=== PATIENT | male | born 1940 | race Caucasian/White ===

== ENCOUNTER → 2023-03-01 | Outpatient (CLI) | payer MEDICARE, OTHER ==
[2023-03-01 15:00] LABS: BASO % 0.6 % (0.0-1.0); EOS % 0.8 % (0.0-3.0); HEMATOCRIT 44.7 % (42.0-52.0); LYMPH # 1.1 10^3/uL (1.5-5.0); LYMPH % 21.4 % (24.0-44.0); MEAN CORPUSCULAR HEMOGLOBIN 31.1 pg (27.0-33.0); MEAN CORPUSCULAR HGB CONC 33.6 g/dl (32.0-36.5); MEAN CORPUSCULAR VOLUME 92.7 fl (80.0-96.0); MONO # 0.5 10^3/uL (0.0-0.8); MONO % 10.9 % (2.0-8.0); NEUTROPHILS # 3.3 10^3/uL (1.5-8.5); NEUTROPHILS % 66.1 % (36.0-66.0); PLATELET COUNT, AUTOMATED 164 10^3/uL (150-450); RED BLOOD COUNT 4.82 10^6/uL (4.30-6.10)
[2023-03-01 15:19] LABS: ALBUMIN 3.9 G/DL (3.2-5.2); ALKALINE PHOSPHATASE 59 U/L (46-116); ALT/SGPT 16 U/L (7.0-40); AST/SGOT 23 U/L (<34); BILIRUBIN,TOTAL 0.7 MG/DL (0.3-1.2); BLOOD UREA NITROGEN 19 MG/DL (9-23); CALCIUM LEVEL 8.7 MG/DL (8.3-10.6); CARBON DIOXIDE LEVEL 30 MMOL/L (20-31); CHLORIDE LEVEL 103 MMOL/L (98-107); CREATININE FOR GFR 0.95 MG/DL (0.70-1.30); GLOMERULAR FILTRATION RATE > 60.0 (>35); GLUCOSE, FASTING 72 MG/DL (74-106); SODIUM LEVEL 141 MMOL/L (136-145)
[2023-03-01 15:20] LABS: FOLATE > 24.0 NG/ML (>5.4); THYROXINE (T4) 9.1 UG/DL (4.5-10.9); VITAMIN B12 LEVEL 584 PG/ML (211-911)
[2023-03-01 15:21] LABS: THYROID STIMULATING HORMONE 2.308 uIU/ML (0.55-4.78)
[2023-03-01 15:23] LABS: FREE THYROXINE INDEX 3.7 % (1.4-3.8); T UPTAKE 40.9 % (22.5-37.0)
== END ==
LOC: M PLALAB 11:28
PROVIDERS: ATTEND Psychiatry & Neurology Neurology
DX: D51.9 Vitamin B12 deficiency anemia, unspecified (principal); E07.9 Disorder of thyroid, unspecified

== ENCOUNTER 2023-09-01 06:08 | Day surgery (SDC) | payer MEDICARE, OTHER ==
[~2023-09-01] VITALS: Ht 167.6 cm; Wt 84.3 kg
[~2023-09-01 06:08] MED LIST: ATOR40TA75 PO; BAYE81TA10 PO; CYAN100049 PO; FAMO1TAB11 PO; HEARTAB2 PO; MULTTAB86 PO; PHENYLEPHRINE 10% OPHTH SOL 5ML OD PRN; SERT25TA21 PO; THIA50TA4 PO; VITA50TA6 PO
[2023-09-01] MEDS: LIDOCAINE 3.5 % 1ML OPHTH TOPICAL GEL OU ONE (06:50)
[2023-09-01] MEDS: TROPICAMIDE 1% OPHTH SOLN 15ML OD SCH (07:21)
[2023-09-01] MEDS: PHENYLEPHRINE 2.5% OPHTH SOL 2ML OD SCH (07:21)
[2023-09-01] MEDS: ATROPINE SULFATE 1% OPHTH SOLN 2ML BTL OD SCH (07:21)
[2023-09-01] MEDS: LIDOCAINE 1% SDV 5ML VIAL As Ordered ONE (08:00)
[2023-09-01] MEDS: BSS IRRIG/VANCO(10MG)/TOBRA(5MG)/EPINEPH(1:1000-0.5CC)500ML BAG-ORONLY As Ordered ONE (08:01)
[2023-09-01] MEDS: CEFUROXIME 1MG/0.1ML INTRACAMERAL INJ As Ordered ONE (08:01)
[2023-09-01 08:14] VITALS: BP 156/72; TEMP 98; O2SAT 98
== END 2023-09-01 08:45 | disposition home or self-care (01) ==
LOC: M SDC 06:08
PROVIDERS: ATTEND Ophthalmology
DX: H25.11 Age-related nuclear cataract, right eye (principal); I25.10 Atherosclerotic heart disease of native coronary artery without angina pectoris; I10 Essential (primary) hypertension; E78.5 Hyperlipidemia, unspecified; K21.9 Gastro-esophageal reflux disease without esophagitis; Z87.891 Personal history of nicotine dependence; Z98.61 Coronary angioplasty status; Z79.82 Long term (current) use of aspirin; Z79.899 Other long term (current) drug therapy; Z88.2 Allergy status to sulfonamides; Z88.1 Allergy status to other antibiotic agents; Z88.8 Allergy status to other drugs, medicaments and biological substances
CPT/HCPCS: 66984; J0697; V2632

== ENCOUNTER 2023-09-22 06:26 | Day surgery (SDC) | payer MEDICARE, OTHER ==
[~2023-09-22] VITALS: Ht 170.2 cm; Wt 83.5 kg
[~2023-09-22 06:26] MED LIST changes: -PHENYLEPHRINE 10% OPHTH SOL 5ML OD PRN; +PHENYLEPHRINE 10% OPHTH SOL 5ML OS PRN
[2023-09-22] MEDS ORDERED: fentaNYL 100 MCG/2 ML INJECTION As Ordered ONE (07:17)
[2023-09-22] MEDS: ATROPINE SULFATE 1% OPHTH SOLN 2ML BTL OS SCH (07:18)
[2023-09-22] MEDS: PHENYLEPHRINE 2.5% OPHTH SOL 2ML OS SCH (07:18)
[2023-09-22] MEDS: TROPICAMIDE 1% OPHTH SOLN 15ML OS SCH (07:18)
[2023-09-22] MEDS: LIDOCAINE 3.5 % 1ML OPHTH TOPICAL GEL OU ONE (07:30)
[2023-09-22] MEDS: BSS IRRIG/VANCO(10MG)/TOBRA(5MG)/EPINEPH(1:1000-0.5CC)500ML BAG-ORONLY As Ordered ONE (10:08)
[2023-09-22] MEDS: LIDOCAINE 1% SDV 5ML VIAL As Ordered ONE (10:08)
[2023-09-22] MEDS: CEFUROXIME 1MG/0.1ML INTRACAMERAL INJ As Ordered ONE (10:08)
[2023-09-22 10:14] VITALS: BP 129/58; TEMP 97.1; O2SAT 98
== END 2023-09-22 10:35 | disposition home or self-care (01) ==
LOC: M SDC 06:26
PROVIDERS: ATTEND Ophthalmology
DX: H25.12 Age-related nuclear cataract, left eye (principal); H57.03 Miosis; I10 Essential (primary) hypertension; I25.10 Atherosclerotic heart disease of native coronary artery without angina pectoris; E78.5 Hyperlipidemia, unspecified; K21.9 Gastro-esophageal reflux disease without esophagitis; Z86.718 Personal history of other venous thrombosis and embolism; Z79.899 Other long term (current) drug therapy; Z79.82 Long term (current) use of aspirin; Z88.2 Allergy status to sulfonamides; Z88.8 Allergy status to other drugs, medicaments and biological substances
CPT/HCPCS: 66982; J0697; J3010; V2632